=== PATIENT | male | born 1945 ===

== ENCOUNTER 2020-04-06 06:52 | Inpatient (IN) ==
--- NOTE | 2020-03-30 10:18 | PAT Medication Instructions ---
Medication Instructions Date of Service March 30, 2020 Home Medications finasteride 5 mg tablet 5 mg PO QAM doxycycline monohydrate 100 mg capsule 100 mg PO BID lisinopril 20 mg tablet 20 mg PO QAM metformin 500 mg tablet 500 mg PO BID simvastatin 20 mg tablet 20 mg PO QPM vitamin B complex 1 tab PO QAM cyanocobalamin (vitamin B-12) 1,000 mcg PO QAM multivitamin 1 cap PO QAM DO NOT take the morning of surgery lisinopril 20 mg tablet 20 mg PO QAM metformin 500 mg tablet 500 mg PO BID vitamin B complex 1 tab PO QAM cyanocobalamin (vitamin B-12) 1,000 mcg PO QAM multivitamin 1 cap PO QAM Take morning of surgery With a small sip of water, OTHERWISE NOTHING TO EAT OR DRINK AFTER MIDNIGHT: finasteride 5 mg tablet 5 mg PO QAM doxycycline monohydrate 100 mg capsule 100 mg PO BID Take evening before surgery doxycycline monohydrate 100 mg capsule 100 mg PO BID metformin 500 mg tablet 500 mg PO BID simvastatin 20 mg tablet 20 mg PO QPM Other Notes If you have any questions please call us at [phone] or [phone] or [phone] or [phone]
--- NOTE | 2020-03-31 10:14 | Anesthesiology Consultation ---
Date of Service March 31, 2020 Assessment & Plan (1) Encounter for pre-operative examination: COVID Status: As of 03/31 assessment, patient denies travel to endemic area, known exposure/sick contacts, or symptoms of COVID19. Patient instructed that they and their household members must follow strict social distancing guidelines, wear a mask in public and avoid travel/events/gatherings for 14 days prior to surgery. Preoperative COVID19 testing to be completed prior to surgery per surgeon's arrangements. Patient made aware to self-isolate as much as possible between COVID testing and surgery. BSG AM DOS Chart Review Chart Review: Acceptable Risk for Surgery and Patient seen in Pre Admission Testing Teaching & Discussion Instructed NPO after midnight before surgery, except medications with 15 cc of water. Medication instructions provided according to the PAT guidelines. History Surgery Operation Date: 04/06/20 07:30 Proposed Procedures p Robotic Laparoscopic Assisted radical Prostatectomy, Possible Open Possible Pelvic Lymph Node Dissection, Possible Suprapubic Tube Placement - Yuri Gardner MD Height/Weight Height: 5 ft 11 in Weight: 95.7 kg Allergies Allergy/AdvReac Type Severity Reaction Status Date / Time No Known Allergies Allergy Unverified 03/29/20 10:56 Medications Home Medications Medication Instructions Recorded Confirmed Last Taken finasteride 5 mg tablet 5 mg PO QAM 09/30/19 03/29/20 Unknown doxycycline monohydrate 100 mg 100 mg PO BID 02/19/20 03/29/20 Unknown capsule lisinopril 20 mg tablet 20 mg PO QAM 02/19/20 03/29/20 Unknown metformin 500 mg tablet 500 mg PO BID 02/19/20 03/29/20 Unknown simvastatin 20 mg tablet 20 mg PO QPM 02/19/20 03/29/20 Unknown vitamin B complex 1 tab PO QAM 02/19/20 03/29/20 Unknown cyanocobalamin (vitamin B-12) 1,000 mcg PO QAM 03/29/20 03/29/20 Unknown [Vitamin B-12] multivitamin 1 cap PO QAM 03/29/20 03/29/20 Unknown Past Medical History Medical History BPH (benign prostatic hyperplasia) Diabetes mellitus, type 2 Hypertension Prostate cancer needs surgical intervention Exercise / Class Metabolic Activity II 4-5 Yardwork/Stairs/Walk up hill Past Family History Family History Father Leukemia Other No pertinent family history Past Surgical History Surgical History History of hernia surgery (~1994) History of knee replacement (~2006) right and left Hx of colonoscopy Past Anesthesia History No Hx of Anesthesia Complications History of PONV No Hx of PONV and No Hx of Motion Sickness Social History Smoking Status: Never smoker Do You Dip or Chew Tobacco: No Hx Alcohol Use: No Hx Substance Use: No substance use type: does not use Review of Systems Pt denies any recent chest pain, shortness of breath, palpitations, fever, URI, or uncontrolled acid reflux. +cough when working in [employer], pt feels allergy- related Physical Exam Vital Signs BP: 157/81 P: 87bpm SPO2: 97% RA T: 98.2 F R: 16 ENMT Mouth: + dental restorations (crowns on a few molars); no chipped teeth and no loose teeth Thyromental Distance: > or= 3.5 Finger Breadths Mallampati Class: I (anterior airway) Neck neck extension not limited Respiratory normal respiratory effort, lungs clear to auscultation Auscultation: + diminished lung sounds Cardiovascular RRR, no murmur, no edema Vessels: no carotid bruit Testing Laboratory Results 03/31/20 10:32 03/31/20 10:32 Urine Color Yellow 03/31/20 10:32 Urine Appearance Clear (Clear) 03/31/20 10:32 Urine pH 5.0 (4.5-7.5) 03/31/20 10:32 Ur Specific [place] 1.021 (1.000-1.030) 03/31/20 10:32 Urine Protein Negative (Negative) 03/31/20 10:32 Urine Glucose (UA) Negative (Negative) 03/31/20 10:32 Urine Ketones Negative (Negative) 03/31/20 10:32 Urine Nitrite Negative (Negative) 03/31/20 10:32 Ur Leukocyte Esterase Negative (Negative) 03/31/20 10:32 Blood Type A Positive 03/31/20 10:32 Antibody Screen NEGATIVE 03/31/20 10:32 Electrocardiogram Date: 03/31/20 Findings: + NSR @ (82bpm)
[2020-03-31 12:39] LABS: Basophils # (auto) 0.02 K/uL (0-0.2); Basophils % (auto) 0.3 %; Eosinophils # (auto) 0.15 K/uL (0-0.5); Eosinophils % (auto) 2.2 %; Hematocrit (blood only) 41.3 % (42-52); Hemoglobin 13.6 g/dL (14.0-18.0); Immature Granulocytes # (auto) 0.02 K/uL (0.00-0.02); Immature Granulocytes % (auto) 0.3 %; Lymphocytes # (auto) 1.38 K/uL (1.2-3.4); Lymphocytes % (auto) 20.6 %; Mean Corpuscular Hemoglobin 30.1 pg (25-34); Mean Corpuscular Hgb Conc 32.9 g/dL (32-36); Mean Corpuscular Volume 91.4 fL (80-100); Mean Platelet Volume 10.5 fL (7.4-10.4); Monocytes # (auto) 0.69 K/uL (0.11-0.59); Monocytes % (auto) 10.3 %; Neutrophils # (auto) 4.43 K/uL (1.4-6.5); Neutrophils % (auto) 66.3 %; Platelet Count 241 K/uL (130-400); RDW Coefficient of Variation 13.7 % (11.5-14.5); RDW Standard Deviation 45.9 fL (36.4-46.3); Red Blood Count 4.52 M/uL (4.7-6.1); White Blood Count 6.69 K/uL (4.8-10.8)
[2020-03-31 12:42] LABS: Appearance Urine Clear (Clear); Bilirubin Urine Negative (Negative); Blood Urine Negative (Negative); Color Urine Yellow; Glucose Urine UA Negative (Negative); Ketones Urine Negative (Negative); Leukocyte Esterase Urine Negative (Negative); Nitrite Urine Negative (Negative); Protein Urine Negative (Negative); Specific Gravity Urine 1.021 (1.000-1.030); Urobilinogen Urine Negative (Negative)
[2020-03-31 12:43] LABS: BUN Creatinine Ratio 14.6 (10-20); Calcium 9.2 mg/dl (8.5-10.1); Creatinine Clr Calc Pharmacy 68.5 ml/min; Est GFR (African American) 73.3; Est GFR (Non-African American) 63.2; Potassium 4.3 mmol/L (3.5-5.1)
--- NOTE | 2020-03-31 14:15 | Electrocardiogram Report ---
Test Reason : Blood Pressure : / mmHG Vent. Rate : 082 BPM Atrial Rate : 082 BPM P-R Int : 168 ms QRS Dur : 096 ms QT Int : 374 ms P-R-T Axes : 070 054 075 degrees QTc Int : 436 ms Normal sinus rhythm Normal ECG No previous ECGs available Confirmed by Konstantin Flores ([id number]) on 03/31/2020 2:15:37 PM Referred By: Yuri Gardner Confirmed By:Immanuel Flores
[~2020-04-06 06:52] MED LIST: HEPARIN SOD 5,000 UNIT/0.5 ML VIAL SQ SCH; LACTATED RINGER'S 1,000 ML IV SCH
[2020-04-06] MEDS ORDERED: BUPIVACAINE 0.5 % 5 MG/1 ML MPF 30ML VIAL ONE (07:07)
[2020-04-06] MEDS ORDERED: fentaNYL citrate 100 MCG/2 ML VIAL ONE ×3 (07:15→10:41)
[2020-04-06] MEDS ORDERED: GLYCOPYRROLATE 0.2 MG/ML VIAL ONE (07:15)
[2020-04-06] MEDS ORDERED: LIDOCAINE HCL 2% 2 ML VIAL/AMP(20MG/ML) INFIL ONE (07:15)
[2020-04-06] MEDS ORDERED: ROCURONIUM BROMIDE 10 MG/ML 5 ML VIAL IV ONE (07:15)
[2020-04-06] MEDS ORDERED: PROPOFOL IV EMULSION 10 MG/ML 20 ML VIAL IV ONE (07:15)
[2020-04-06] MEDS ORDERED: DEXAMETHASONE SOD INJ 4 MG/ML VIAL ONE (07:15)
[2020-04-06] MEDS ORDERED: MIDAZOLAM HCL 1 MG/ML 2ML VIAL ONE (07:15)
[2020-04-06] MEDS ORDERED: NEOSTIGMINE METHYLSULFATE 5 MG/5 ML SYR ONE (07:15)
[2020-04-06] MEDS ORDERED: LARYING-O-JET KIT (LTA) ONE (07:15)
[2020-04-06] MEDS ORDERED: ONDANSETRON INJ 2 MG/ML 2 ML VIAL ONE (07:15)
[2020-04-06] MEDS ORDERED: KETAMINE 50 MG/5 ML SYRINGE ONE (07:17)
--- NOTE | 2020-04-06 07:17 | History & Physical Report ---
Date of Service April 06, 2020 Assessment & Plan (1) Prostate cancer: Admission and Anticipated Discharge Date Admission Date: High grade prostate ca here for prostatectomy risks, benefits, alternatives discussed OR now History of Present Illness Primary Care Provider: Tabatha Harvey MD Pt with recently diagnosed prostate cancer presenting for robotic prostatectomy Allergies Allergy/AdvReac Type Severity Reaction Status Date / Time No Known Allergies Allergy Unverified 03/29/20 10:56 Home Medications Medication Instructions Recorded Confirmed Type finasteride 5 mg tablet 5 mg PO QAM 09/30/19 04/06/20 History doxycycline monohydrate 100 mg 100 mg PO BID 02/19/20 04/06/20 History capsule lisinopril 20 mg tablet 20 mg PO QAM 02/19/20 04/06/20 History metformin 500 mg tablet 500 mg PO BID 02/19/20 04/06/20 History simvastatin 20 mg tablet 20 mg PO QPM 02/19/20 04/06/20 History vitamin B complex 1 tab PO QAM 02/19/20 04/06/20 History cyanocobalamin (vitamin B-12) 1,000 mcg PO QAM 03/29/20 03/29/20 History [Vitamin B-12] multivitamin 1 cap PO QAM 03/29/20 03/29/20 History cefuroxime axetil 500 mg tablet 500 mg PO BID 7 Days #14 tab 04/02/20 04/06/20 Rx Past Med/Surg History Medical History BPH (benign prostatic hyperplasia) Diabetes mellitus, type 2 Hypertension Prostate cancer needs surgical intervention Surgical History History of hernia surgery (~1994) History of knee replacement (~2006) right and left Hx of colonoscopy Family History Father Leukemia Other No pertinent family history Social History Smoking Status: Never smoker Second Hand Exposure: No; Do You Dip or Chew Tobacco: No; Tobacco Cessation Education Requested by Patient: No Hx Alcohol Use: No Hx Substance Use: No Preferred Language: Moroccan Communication Ability: Effective Warehouse Attendant Required: No Beliefs That Will Affect Care: None marital status: Current Living Situation: Spouse current occupational status: retired 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 How many Children do You have: 2 Other Information That Helps Us Care for You: No Feels Safe at Home: Yes Safety Concerns: Feels Safe At This Time Childhood Exposure to Second-Hand Smoke: No caffeine: Yes (diet soda) during the past year weight has: remained stable Dental Care, Regularly: Yes Physical Activity Frequency: 5-6 Times per Week Physical Activity Frequency Comment: yesterday, bicycled for 18 miles Seatbelt Use: always Sunscreen Use: Yes Assistive Devices: None Review of Systems All systems reviewed & are unremarkable except as noted in HPI & below Physical Exam Constitutional: well developed and well nourished Neck: neck nontender Respiratory: normal respiratory effort; no respiratory distress and does not use accessory muscles Cardiovascular: Rate/Rhythm: regular rate Vessels: radial pulses present Extremities: no edema Gastrointestinal (Abdomen): Inspection/Auscultation: abdomen normal to inspection Percussion/Palpation: abdomen soft; abdomen nontender and no guarding Musculoskeletal: Head/Neck/Chest: normocephalic and head atraumatic Extremities: extremities normal to inspection Skin: no rashes and no lesions Trauma: no evidence of skin trauma Neurologic: awake; not obtunded Speech / Cognition: normal speech Motor/Sensory: no tremor Psychiatric: Orientation: alert and oriented x 3 Genitourinary: no CVA tenderness Lymphatic: no lymphadenopathy
[2020-04-06] MEDS ORDERED: PHENYLEPHRINE 100MCG/ML 5ML SYR IV PRN (07:20)
[2020-04-06] MEDS ORDERED: ONDANSETRON INJ 2 MG/ML 2 ML VIAL IV PRN ×2 (07:20→13:00)
[2020-04-06] MEDS ORDERED: HYDROmorphone INJ 1 MG/ML SYRINGE IV PRN (07:20)
[2020-04-06] MEDS ORDERED: ATROPINE SULFATE 0.1 MG/ML 10ML SYR IV PRN (07:20)
[2020-04-06] MEDS ORDERED: ePHEDrine sulfate 50 MG/ML AMP IV PRN (07:20)
[2020-04-06] MEDS ORDERED: MEPERIDINE HCL 25 MG/ML CARP/VIAL IV PRN (07:20)
[2020-04-06] MEDS ORDERED: fentaNYL citrate 100 MCG/2 ML VIAL IV PRN (07:20)
[2020-04-06] MEDS ORDERED: LABETALOL HCL IV 5 MG/ML 20ML IV PRN (07:20)
[2020-04-06] MEDS ORDERED: ACETAMINOPHEN 1000 MG/100 ML IV IV ONE (07:28)
[2020-04-06] MEDS ORDERED: BELLADONNA/OPIUM SUPP 60 MG SUPP PR ONE (08:14)
[2020-04-06] MEDS ORDERED: ePHEDrine sulfate 50 MG/ML AMP ONE (09:41)
[2020-04-06] MEDS ORDERED: PHENYLEPHRINE HCL 10 MG/ML VIAL ONE (09:41)
[2020-04-06] MEDS ORDERED: FLOSEAL HEMOSTATIC MATRIX 10ML TOP ONE (10:44)
--- NOTE | 2020-04-06 11:00 | Operative Report ---
PG Post Operative Report Pre & Post Diagnosis Operation Date: 04/06/20 08:45 Pre-Op Diagnosis: Prostate Cancer Post-Op Diagnosis: Prostate Cancer I identified the patient and participated in the time-out.: Yes Procedure Operation Date: 04/06/20 08:45 Actual Procedures p Robotic Laparoscopic Assisted Prostatectomy, Pelvic Lymph Node Dissection(Not Applicable) - Yuri Gardner MD Surgeon Konstantin Gardner MD Silver Recovery Operator Vero Anton Estimated Blood Loss 50 Findings Consistent with Post-Op Diagnosis Specimens 1. Periprostatic fat 2. Prostate and seminal vesicles 3. Left pelvic lymph nodes 4. Right pelvic lymph nodes Description of Procedure The patient was identified in the preoperative holding area, appropriate informed consents were reviewed and completed, and he was transported to the operating suite. Subcutaneous heparin was administered in the pre-operative holding area. Upon arrival in the operating suite, he received appropriate antibiotics and general anesthesia. He was positioned in dorsal lithotomy, a B&O suppository was inserted after digital rectal exam, and he was prepped and draped in standard fashion. A Conte catheter was inserted in the sterile field. A Veress needle was passed per umbilicus with uniform insufflation of the abdomen to 15mmHg. He was placed in steep Trendelenburg position. A periumbilical incision was then made to accommodate a 12mm Visiport with 10mm 0degree laparoscope. Inspection of the abdomen was carried out, and there was no evidence of traumatic entry or injury secondary to the Veress needle. After confirming a clear anterior abdominal wall, ports were subsequently placed in standard robotic prostatectomy fashion without incident. To begin the robotic portion of the case, the left lateral aspect of the sigmoid was mobilized off of the left pelvic side wall to allow the pouch of Sergio to be appropriately visualized. I then made an incision in the pouch of Sergio, overlying the seminal vesicles. Both SVs as well as the ampullae of the vasa were entirely dissected, with the vasa transected 3cm from the prostate. The medial umbilical ligaments were then controlled with bipolar electrocautery just inferior to the umbilicus. Following cauterization, they were divided utilizing monopolar cautery. A peritoneal incision was carried from this location to the medial aspect of the internal inguinal rings bilaterally with care to avoid opening through the ring. This incision was concluded when the vas deferens was reached. Dissection of the bladder and prostate off of the posterior aspect of the pubic arch was completed allowing full visualization of the prostate. The fat overlying the prostate was removed en bloc and passed off the table as a specimen labeled "periprostatic fat". The endopelvic fascia was cleared during this portion of the procedure, and subsequently opened - first on the right and then the left. The incision through the endopelvic fascia began near the prostate-bladder junction and was carried to the apex with extreme care to preserve all lateral levator musculature as well as the periurethral musculature and sphincter complex. I additionally preserved the puboprostatic ligaments. I then controlled the DVC with a 3-0 V-lock suture in overlapping/figure of 8 fashion. The lymph node dissection was then conducted. External iliac vessels were identified on the pelvic side wall. The packet of fat and lymphatic tissue that resides just under the iliac vein was elevated and off of the vein with a split and roll technique. The packet was dissected laterally to the circumflex vein and distally to the obturator nerve which was preserved. The proximal aspect of the packet was carried towards the bifurcation of the iliac vessels. A combination of monopolar and bipolar cautery were used to assist with control. After completing the dissection on both sides, the packets were collected and passed off of the table as specimens labeled "pelvic lymph nodes". My attention then returned to the prostate, with identification of the bladder neck aided by gentle traction on the Conte catheter and lateral to medial pressure at the presumed level of the bladder neck with the robotic instruments. An anterior cystotomy was made, the Conte balloon deflated and the catheter guided through the incision to allow anterior retraction. I attempted to preserve maximal bladder neck musculature as I circumferentially dissected around the bladder neck. After incision through the posterior aspect of the mucosa, the dissection was carried through detrusor muscle until the bilateral ampullae of the vasa were identified. The previously dissected vasa and SVs were brought through the incision and used to elevated the prostate anteriorly. A posterior plane behind the prostate was then developed - splitting Denonvilliers's fascia. This dissection was carried as far as possible towards the apex as well as far as possible laterally. An incision in the lateral prostatic fascia was then made bilaterally to facilitate control of the vascular pedicles and preservation of the nerve bundles. Of note, his cancer diagnosis occurred at the right apex of the prostate and the use particular caution as I dissected around the apical tissue on the right. Vasculature running along the posterior/lateral aspect of the prostate was preserved as well as the tissue containing the nerves. The pedicles were then controlled with a series of Weck clips. The apical attachments of the prostate were remaining at that stage. The DVC was divided after control with bipolar cautery over the prostate. Continuous inspection from anterior and lateral views allowed me to closely follow the apical contour of the prostate and maximally preserve urethral length and tissue. The prostate was entirely freed at that point, and collected in an EndoCatch bag before being moved out of the field of vision. Hemostasis was confirmed and anastomosis of the bladder and urethra was completed utilizing a double armed V- Lock stitch. A new Conte catheter was inserted and the anastomosis tested with irrigation. There was no evidence of leak. A kristine style stitch was placed bilaterally to functionally marsupialize the area of the lymph node dissection. The robot was undocked, the specimen extracted through expansion of the muna- umbilical camera port. The fascia was closed with a series of 0-PDS figure of 8 stitches. The right assistant county attorney port was closed in two layers - with a figure of 8 0-Vicryl to reapproximate the fascia followed by 4-0 Monocryl to close the skin. Monocryl was used to close all other skin incisions. All wounds were dressed with Dermabond. The case was concluded and the patient taken to the PACU in stable condition. Vero Borden and Camille Anton assisted from incision to closure. I attest to the content of the Intraoperative Record and any orders documented therein. Any exceptions are noted below.
[2020-04-06 11:44] LABS: Basophils # (auto) 0.02 K/uL (0-0.2); Basophils % (auto) 0.2 %; Eosinophils # (auto) 0.02 K/uL (0-0.5); Eosinophils % (auto) 0.2 %; Hematocrit (blood only) 38.4 % (42-52); Hemoglobin 12.6 g/dL (14.0-18.0); Immature Granulocytes # (auto) 0.04 K/uL (0.00-0.02); Immature Granulocytes % (auto) 0.3 %; Lymphocytes # (auto) 1.26 K/uL (1.2-3.4); Lymphocytes % (auto) 10.5 %; Mean Corpuscular Hemoglobin 29.9 pg (25-34); Mean Corpuscular Volume 91.2 fL (80-100); Mean Platelet Volume 9.9 fL (7.4-10.4); Monocytes # (auto) 0.16 K/uL (0.11-0.59); Monocytes % (auto) 1.3 %; Neutrophils # (auto) 10.48 K/uL (1.4-6.5); Neutrophils % (auto) 87.5 %; Platelet Count 241 K/uL (130-400); RDW Coefficient of Variation 13.5 % (11.5-14.5); RDW Standard Deviation 44.5 fL (36.4-46.3); Red Blood Count 4.21 M/uL (4.7-6.1); White Blood Count 11.98 K/uL (4.8-10.8)
[2020-04-06 12:04] LABS: BUN Creatinine Ratio 12.1 (10-20); Calcium 8.6 mg/dl (8.5-10.1); Creatinine Clr Calc Pharmacy 53.8 ml/min; Est GFR (African American) 55.8; Est GFR (Non-African American) 48.2; Potassium 4.3 mmol/L (3.5-5.1)
--- NOTE | 2020-04-06 12:12 | Anesthesiology Progress Note ---
Date of Service April 06, 2020 Anesthesia Post Procedure Vital Signs Vital Signs: Temp Pulse Pulse Resp BP BP Pulse Ox 04/06/20 11:45 71 20 122/64 99 04/06/20 11:35 65 19 121/61 100 04/06/20 11:25 74 22 117/59 L 100 04/06/20 11:15 76 15 97/53 L 100 04/06/20 11:09 37.1 C 71 24 99/58 L 99 04/06/20 07:20 37.1 C 102 H 20 137/85 97 Transfer of Care Handoff Completed per policy Notes Mental Status: alert / awake / arousable Patient Amnestic to Procedure: Yes Nausea / Vomiting: adequately controlled Pain: adequately controlled Airway Patency, RR, SpO2: stable & adequate BP & HR: stable & adequate and see Notes below Hydration State: stable & adequate Anesthetic Complications: no major complications apparent and Pt Satisfied with anesthetic care Notes: The patient was noted to have bigeminy during the procedure. His HR was maintained in the 80s and SBP was maintained in the 110s. The patient was extubated without incident. A 12 lead EKG was obtained in PACU that showed SR with PVCs and sPVCs. The patient's vital signs have been stable in PACU. His creatinine is slightly elevated but his other electrolytes are normal. The patient has no chest pain, SOB, or palpitatons. He feels "good." Dr. Gardner was made aware of the EKG and will follow the patient on the floor.
[2020-04-06 12:16] LABS: Mean Corpuscular Hgb Conc 32.8 g/dL (32-36)
[2020-04-06] MEDS ORDERED: oxyCODONE HCL IR 5 MG TAB (IMMEDIATE RELEASE) PO PRN ×2 (13:00)
[2020-04-06] MEDS ORDERED: ACETAMINOPHEN 325 MG TAB PO PRN (13:00)
[2020-04-06] MEDS ORDERED: MoRPHine SULFATE 2 MG/ML CARP IV PRN ×2 (13:00)
[2020-04-06] MEDS ORDERED: PHARMACY GLYCEMIC MGMT CONSULT PRN (13:10)
[2020-04-06] MEDS ORDERED: CARBOHYDRATES FOR HYPOGLYCEMIA PO PRN (13:15)
[2020-04-06] MEDS ORDERED: INSULIN GLARGINE SOLOSTAR 100 UNITS/ML 3 ML PEN SC ONE ×2 (13:15→21:00)
[2020-04-06] MEDS ORDERED: GLUCOSE 40% GEL 15 GM TUBE PO PRN (13:15)
[2020-04-06] MEDS ORDERED: DEXTROSE 50% 50 ML SYRINGE IV PRN (13:15)
[2020-04-06] MEDS ORDERED: GLUCAGON FOR INJ 1 MG VIAL SQ PRN (13:15)
[2020-04-06] MEDS ORDERED: GLUCOSE 10 TABS/TUBE PO PRN (13:15)
--- NOTE | 2020-04-06 13:27 | Pharmacy Report ---
Pharmacy Glycemic Short Note 2 - Date of Service April 06, 2020 - Glycemic Short BSG Results (Last 24 hours): 04/06/20 04/06/20 04/06/20 07:15 11:17 11:19 Glucose 159 H POC Glucose 117 H 158 H OUTPATIENT ANTIDIABETIC REGIMEN: * Metformin 500 mg BID * A1c 6.7% 12/10/19 ASSESSMENT: * CD admitted following proctectomy and pelvic lymph dissection. * BSG pre-surgery 117 mg/dL, post 158 mg/dl, patient on oral medications outpatient, may have received dexamethasone in OR * Will give full dose of weight based stress of 1 lantus x1 and set scale for PM * Will start with Novolog parameters between weight based stress of 1 and 2- will tighten if BSGs trend upward PLAN FOR INPATIENT GLYCEMIC CONTROL: * Hold outpatient oral diabetes medications * Basal insulin * Lantus 15 units x 1, scale for PM up to 25 units * Bolus insulin * NovoLog per scale ACHS or Q6hrs while NPO * Goal Range: Low 110 mg/dL - High 140 mg/dL * Correction Factor: 25 mg/dL/unit * Nutritional / Prandial insulin per carb ratio of 1 unit per 12 grams CHO consumed
[2020-04-06] MEDS: LACTATED RINGER'S 1,000 ML IV SCH ×2 (14:15→23:41)
[2020-04-06] MEDS: INSULIN ASPART 100 UNITS/ML 3 ML PEN SC SCH ×3 (14:17→21:22)
--- NOTE | 2020-04-06 15:23 | Electrocardiogram Report ---
Test Reason : Blood Pressure : / mmHG Vent. Rate : 074 BPM Atrial Rate : 074 BPM P-R Int : 176 ms QRS Dur : 092 ms QT Int : 452 ms P-R-T Axes : 072 035 099 degrees QTc Int : 501 ms Sinus rhythm with frequent Premature ventricular complexes in a pattern of bigeminy Nonspecific ST and T wave abnormality Prolonged QT Abnormal ECG When compared with ECG of 31-MAR-2020 10:28, Premature ventricular complexes are now Present Nonspecific T wave abnormality now evident in Lateral leads QT has lengthened Confirmed by Kamar Whitten ([id number]) on 04/06/2020 3:23:09 PM Referred By: Yuri Gardner Confirmed By:Kamar Whitten
[2020-04-06] MEDS: ceFAZolin 2000MG 2,000 MG/15 ML SYR IV SCH ×2 (16:30→23:42)
[2020-04-06] MEDS ORDERED: SIMVASTATIN 20 MG TAB PO SCH (21:00)
[2020-04-06] MEDS: HEPARIN SOD 5,000 UNIT/0.5 ML VIAL SQ SCH (21:09)
[2020-04-07 06:16] LABS: Eosinophils # (auto) 0.01 K/uL (0-0.5); Eosinophils % (auto) 0.1 %; Hematocrit (blood only) 37.3 % (42-52); Hemoglobin 12.5 g/dL (14.0-18.0); Immature Granulocytes # (auto) 0.06 K/uL (0.00-0.02); Immature Granulocytes % (auto) 0.4 %; Lymphocytes # (auto) 1.25 K/uL (1.2-3.4); Lymphocytes % (auto) 9.3 %; Mean Corpuscular Hgb Conc 33.5 g/dL (32-36); Mean Corpuscular Volume 89.7 fL (80-100); Mean Platelet Volume 10.3 fL (7.4-10.4); Monocytes # (auto) 1.45 K/uL (0.11-0.59); Monocytes % (auto) 10.7 %; Neutrophils # (auto) 10.72 K/uL (1.4-6.5); Neutrophils % (auto) 79.5 %; Platelet Count 255 K/uL (130-400); RDW Coefficient of Variation 13.7 % (11.5-14.5); RDW Standard Deviation 44.8 fL (36.4-46.3); Red Blood Count 4.16 M/uL (4.7-6.1); White Blood Count 13.49 K/uL (4.8-10.8)
[2020-04-07 07:00] LABS: BUN Creatinine Ratio 14.9 (10-20); Calcium 8.6 mg/dl (8.5-10.1); Creatinine Clr Calc Pharmacy 70.4 ml/min; Est GFR (African American) 77.3; Est GFR (Non-African American) 66.7; Potassium 4.1 mmol/L (3.5-5.1)
--- NOTE | 2020-04-07 08:13 | Urology Progress Note ---
Date of Service April 07, 2020 Assessment & Plan (1) Prostate cancer: Postop day #1 status post prostatectomy Doing very well Advance diet Mild GERD overnight was his only complaintTums ordered Likely discharge home at lunch Admission and Anticipated Discharge Date Admission Date: April 06, 2020 Subjective Doing very well after prostatectomy He was ambulatory last night Minimal pain Urine cleared appropriately Labs stable, vital stableborderline hypertensive Physical Exam Physical Exam: Incisions appropriate, abdomen soft, minimal edema of the penis, clear urine Results & Data ([facility]) Vital Signs (Past 12 Hours) Vital Signs Temp Pulse Pulse Resp BP BP Pulse Ox 04/07/20 07:00 37.0 C 107 H 20 164/88 H 95 04/07/20 03:10 37.5 C 107 H 14 167/85 H 94 04/06/20 23:07 37.4 C 109 H 16 148/83 H 97 PG Care Time/CCT Total # of Minutes Spent Total Time Spent with Patient: Total time spent is greater than 50% in coordination of care (as documented) at patient's floor/unit and/or counseling patient: Coding Level of Care Code None Diagnoses Prostate cancer C61
[2020-04-07] MEDS ORDERED: CALCIUM CARBONATE 500 MG CHEWABLE TAB PO PRN (08:24)
[2020-04-07] MEDS ORDERED: CYANOCOBALAMIN 500 MCG TABLET (VITAMIN B-12) PO SCH (09:00)
[2020-04-07] MEDS ORDERED: INSULIN GLARGINE SOLOSTAR 100 UNITS/ML 3 ML PEN SC SCH (09:00)
[2020-04-07] MEDS ORDERED: lisinopril 20 MG TAB PO SCH (09:00)
[2020-04-07] MEDS ORDERED: MULTIVITAMIN TAB PO SCH (09:00)
[2020-04-07] MEDS: LACTATED RINGER'S 1,000 ML IV SCH (09:41)
[2020-04-07] MEDS: HEPARIN SOD 5,000 UNIT/0.5 ML VIAL SQ SCH (09:43)
[2020-04-07] MEDS: INSULIN ASPART 100 UNITS/ML 3 ML PEN SC SCH ×2 (09:45→13:17)
--- NOTE | 2020-04-08 10:14 | Discharge Summary ---
Date of Service April 08, 2020 Admission HPI Per Admitting Provider Pt with recently diagnosed prostate cancer presenting for robotic prostatectomy Principal Diagnosis Prostate cancer Discharge Data Allergies Allergy/AdvReac Type Severity Reaction Status Date / Time No Known Allergies Allergy Unverified 03/29/20 10:56 Procedures Performed Operation Date: 04/06/20 08:45 Actual Procedures p Robotic Laparoscopic Assisted Prostatectomy, Pelvic Lymph Node Dissection(Not Applicable) - Yuri Gardner MD Hospital Course (1) Prostate cancer: Patient admitted for a robotic prostatectomy - details of the procedure as dictated previously in my operative report - in summary, he tolerated the procedure very well - he was in stable condition overnight with appropriate urine output and stable labs - he was subsequently discharged home with a camara catheter - he was in stable condition at the time of discharge Total Time Total Time Spent Total Time Spent (In Minutes): 15 Total Time Includes: Examination of the Patient, Discharge Planning, Medication Reconciliation, Communication With Other Providers and Other Discharge Plan Discharge Items Patient Disposition: Home - Self-Care Reason For Visit: Prostate Cancer Discharge Diagnosis: Prostate Cancer Activity: Per Instructions section Lifting: No more than 10 pounds Bathing Comment: No tub baths or soaks. Ok to shower 1 day after discharge. Sexual Activity: Wait until after follow-up appointment Exercise/Sports: Wait until after follow-up appointment Driving/Machine Use: Do not drive while taking prescription pain medication Non-emergency contact: Surgeon and Urologist Call non-emergency contact if: your pain is not controlled, you have a fever, your temperature is above 101, your wound has increased redness, your wound has increased drainage and your wound pain has increased Follow-up/Referrals: Yuri Gardner MD [Physician] - 04/19/20 9:00 am Tabatha Harvey MD [Primary Care Provider] - [facility],Nurse [FAKE FOR SCHEDULES] - 04/12/20 9:00 am Diet: Carb Consistent or DM2 Addtl Attending Provider Instructions: Please take all medications as prescribed and keep all follow-ups as scheduled. Please call our office at [phone] with any questions, concerns or need to reschedule appointments for any reason. We are happy to assist you We have sent an antibiotic to your pharmacy of choice. Please begin antibiotic as prescribed the day BEFORE your scheduled voiding trial at [facility]. Please continue antibiotic every 12 hours through the day AFTER your voiding trial. Activity: We recommend having someone with you for the first few days after surgery to help care for you. For the first 2 weeks after surgery, we would like you to get up and walk around your house. However, we recommend limit physical activity that would increase your heart rate. This will allow your body to rest and heal. Take naps if you feel tired. Don't lift anything heavier than 10 pounds, mow the law or ride a bicycle until your follow-up appointment. Please avoid long car rides. Home Care: Unless directed otherwise, drink 6 to 8 glasses of water a day (enough to keep your urine light colored). This will also help keep a healthy flow of urine. We recommend using a stool softener for the first two weeks to avoid constipation. Camara Catheter or Suprapubic Catheter care: Keep the catheter well secured with either a leg back or leg strap with large bag. Empty your bag when it's about half full. You may notice some blood in the bag. This is normal after surgery and while the catheter is in place. Use mild soap (such as Dove or Dial) and water to wash the catheter and the head of your penis daily, or more frequently if needed. Return to your normal diet, we encourage good protein intake to promote healing. You may shower as normal. Please avoid tub baths or soaking until catheter removed and incisions well healed. Wearing sweat pants while you have the catheter is recommended, they will be more comfortable. Follow-up Your follow up appointments for having your catheter removed, and follow up with your physician should already be scheduled. If you have any questions regarding this, please contact our office. Your final pathology report will be discussed at your physician follow-up appointment. Call [facility] at [phone] right away if you have any of the following: Chest pain or trouble breathing (call [phone] or go to the hospital) Fever of 101F or higher, uncontrolled vomiting Heavy bleeding, clots, or bright red blood from the catheter Catheter that falls out or stops draining Foul-smelling discharge from your catheter Redness, swelling, warmth, or increased pain at your incision site Drainage, pus, or bleeding from your incision Pending Studies at Discharge: Yes Studies:: Pathology Stand-Alone Forms: [facility], Opioid Pain Management, Smoking Cessation Medications and DC Order Prescriptions: New oxycodone-acetaminophen [Percocet] 5-325 mg tablet 1 tab PO Q8H PRN (Reason: pain) Qty: 14 RF: 0 docusate sodium [Colace] 100 mg capsule 100 mg PO BID Qty: 60 RF: 0 Continued lisinopril 20 mg tablet 20 mg PO QAM RF: 0 metformin 500 mg tablet 500 mg PO BID RF: 0 vitamin B complex [B Complex-Vitamin B12] Tablet 1 tab PO QAM RF: 0 doxycycline monohydrate 100 mg capsule 100 mg PO BID RF: 0 simvastatin 20 mg tablet 20 mg PO QPM RF: 0 cefuroxime axetil 500 mg tablet 500 mg PO BID 7 Days Qty: 14 RF: 0 cyanocobalamin (vitamin B-12) [Vitamin B-12] 1,000 mcg Tablet 1,000 mcg PO QAM RF: 0 multivitamin Capsule 1 cap PO QAM RF: 0 Discontinued finasteride 5 mg tablet 5 mg PO QAM RF: 0 Discharge Orders: Discharge Order (Routine); Ordered 04/07/20 Ordered By: Vero Emmanuel/Other Patient Handouts: DVT Post Op Prevention, Emptying and Cleaning Your ..., Discharge Instructions Caring for ... Admission Data Admit Date/Time: 04/06/20 10:47 Attending Provider: Yuri Gardner Admit Provider: Yuri Gardner Primary Care Provider: Tabatha Harvey Other Interventions: Discharge Summary Assessment (RN) Last Done: 04/07/20 13:37 Coding Level of Care Code D/C Day Management <30 mins Diagnoses Prostate cancer C61
== END 2020-04-07 14:37 | disposition home or self-care (01) | DRG 708 ==
LOC: ASU 06:52 → 3N 10:47